=== PATIENT | male | born 1965 | race Caucasian/White ===

== ENCOUNTER 2022-04-30 10:27 | Emergency (ER) | payer OTHER ==
[~2022-04-30 10:27] MED LIST: ASPIRIN CHEWABL81 MG PO; FLOMAX0.4 MG PO; IBUPROFEN800 MG PO; LEXAPRO20 MG PO; LIPITOR 10MG TA10 MG PO; LOPRESSOR25 MG PO; NEURONTIN100 MG PO; NTG SL; PLAVIX75 MG PO; VICODIN 10/3251 EACH PO; ZOFRAN4 MG PO
[2022-04-30 11:05] LABS: BASOPHIL 0.4 % (0-2); EOSINOPHIL 1.7 % (0-5); HCT 41.8 % (42.0-52.0); HGB 14.4 g/dl (13.2-18.0); LYMPHOCYTE 19.2 % (15-48); MCH 31.2 pg (25.0-31.0); MCHC 34.4 g/dL (32.0-36.0); MCV 90.7 fL (78.0-100.0); MONOCYTE 6.2 % (0-12); MPV 8.6 fL (6.0-9.5); NEUTROPHIL 71.9 % (41-80); NRBC 0; PLT 190 K/uL (150-400); RBC 4.61 M/uL (4.70-6.00)
[2022-04-30 11:12] LABS: INR 0.99 (0.9-1.2); PROTHROMBIN TIME 12.5 SECONDS (11.8-13.4); PTT 27.1 SECONDS (24.4-34.7)
[2022-04-30 11:21] LABS: ALBUMIN 3.7 g/dL (3.4-5.0); BILIRUBIN - TOTAL 0.5 mg/dL (0.2-1.0); BUN/CREAT RATIO (CALC) 15.8 RATIO; CREATININE 0.95 mg/dL (0.67-1.17); GLOBULIN (CALCULATION) 3.3 g/dL; POTASSIUM 3.8 mmol/L (3.5-5.1)
[2022-04-30 13:00] LABS: BILIRUBIN NEGATIVE (NEGATIVE); BLOOD NEGATIVE Ery/uL (NEGATIVE); CLARITY CLEAR (CLEAR); COLOR YELLOW (YELLOW); GLUCOSE (U) NORMAL (NORMAL); LEUKOCYTES NEGATIVE Leu/uL (NEGATIVE); NITRITE NEGATIVE (NEGATIVE); PROTEIN NEGATIVE (NEGATIVE); UROBILINOGEN 0.2 mg/dL (0.2-1.0)
[2022-04-30 13:03] LABS: MARIJUANA (THC) NEGATIVE (NEGATIVE)
[2022-04-30 13:04] LABS: AMPHETAMINES POSITIVE (NEGATIVE); BARBITURATES NEGATIVE (NEGATIVE); ECSTASY (MDMA) NEGATIVE (NEGATIVE); METHADONE NEGATIVE (NEGATIVE); OPIATES POSITIVE (NEGATIVE); OXYCODONE NEGATIVE (NEGATIVE)
[2022-04-30] MEDS ORDERED: ONDANSETRON ODT4 MG PO (23:20)
== END 2022-04-30 14:38 | disposition home or self-care (01) ==
LOC: FER 10:27
PROVIDERS: Emergency Medicine
DX: H60.12 Cellulitis of left external ear (principal); F19.10 Other psychoactive substance abuse, uncomplicated; I25.2 Old myocardial infarction; F17.200 Nicotine dependence, unspecified, uncomplicated; Z28.310 Unvaccinated for COVID-19; Z95.5 Presence of coronary angioplasty implant and graft; Z88.0 Allergy status to penicillin; Z88.1 Allergy status to other antibiotic agents; Z79.02 Long term (current) use of antithrombotics/antiplatelets
CPT/HCPCS: 36415; 70450; 71045; 80053; 80305; 81003; 84145; 84484; 85025; 85610; 85730; 87040; 93005; J2060

== ENCOUNTER 2022-04-30 21:27 | Emergency (ER) | payer OTHER ==
[2022-04-30 21:58] LABS: BASOPHIL 0.4 % (0-2); EOSINOPHIL 1.7 % (0-5); HCT 40.1 % (42.0-52.0); HGB 13.9 g/dl (13.2-18.0); LYMPHOCYTE 21.4 % (15-48); MCH 31.2 pg (25.0-31.0); MCHC 34.7 g/dL (32.0-36.0); MCV 90.1 fL (78.0-100.0); MONOCYTE 5.7 % (0-12); MPV 8.6 fL (6.0-9.5); NEUTROPHIL 70.3 % (41-80); NRBC 0; PLT 196 K/uL (150-400); RBC 4.45 M/uL (4.70-6.00); RDW 12.9 % (11.5-14.0); WBC 7.8 K/uL (4.0-10.5)
[2022-04-30 22:11] LABS: ALBUMIN 3.8 g/dL (3.4-5.0); BILIRUBIN - TOTAL 0.5 mg/dL (0.2-1.0); GLOBULIN (CALCULATION) 3.2 g/dL; MAGNESIUM 2.1 mg/dL (1.8-2.4); POTASSIUM 3.8 mmol/L (3.5-5.1)
[2022-04-30] MEDS ORDERED: ONDANSETRON ODT4 MG PO (23:20)
== END 2022-04-30 23:36 | disposition home or self-care (01) ==
LOC: FER 21:27
PROVIDERS: Internal Medicine
DX: H60.12 Cellulitis of left external ear (principal); I25.2 Old myocardial infarction; I10 Essential (primary) hypertension; F17.210 Nicotine dependence, cigarettes, uncomplicated; Z28.310 Unvaccinated for COVID-19; Z95.5 Presence of coronary angioplasty implant and graft; Z88.0 Allergy status to penicillin; Z79.02 Long term (current) use of antithrombotics/antiplatelets
CPT/HCPCS: 36415; 80053; 83690; 83735; 84145; 84484; 85025; 93005; J1100; J2060